=== PATIENT | female | born 1940 | race Caucasian/White ===

== ENCOUNTER 2016-07-30 15:43 | Outpatient (CLI) | payer MEDICARE, MEDICAID | END 2016-07-30 15:44 | disposition home or self-care (01) | DX: M43.8X4 Other specified deforming dorsopathies, thoracic region (principal); M51.34 Other intervertebral disc degeneration, thoracic region; M43.8X6 Other specified deforming dorsopathies, lumbar region; M41.9 Scoliosis, unspecified ==

== ENCOUNTER 2016-08-03 | Outpatient (CLI) | payer MEDICARE, MEDICAID | END 2016-08-03 07:54 | disposition critical access hospital (66) | DX: M54.9 Dorsalgia, unspecified (principal) | CPT/HCPCS: A0425; A0429 ==

== ENCOUNTER 2016-08-03 08:11 | Emergency (ER) | payer MEDICARE, MEDICAID ==
[2016-08-03] MEDS ORDERED: HYDROcod/ACETAM 5/325 MG TABLET PO STA (08:22)
[2016-08-03] MEDS ORDERED: LIDOCAINE PATCH 5% TOP STA (08:22)
[2016-08-03] MEDS ORDERED: HYDROcod/ACETAM 5/325 MG TABLET ONE (08:23)
[2016-08-03] MEDS ORDERED: LIDOCAINE PATCH 5% TOP ONE (08:24)
== END 2016-08-03 10:58 | disposition home or self-care (01) ==
DX: S20.211A Contusion of right front wall of thorax, initial encounter (principal); M54.9 Dorsalgia, unspecified; W01.0XXA Fall on same level from slipping, tripping and stumbling without subsequent striking against object, initial encounter; Y92.009 Unspecified place in unspecified non-institutional (private) residence as the place of occurrence of the external cause; I10 Essential (primary) hypertension; F17.200 Nicotine dependence, unspecified, uncomplicated
CPT/HCPCS: 99283; A9270

== ENCOUNTER 2016-08-04 | Outpatient (CLI) | payer MEDICARE, MEDICAID | END 2016-08-04 16:55 | disposition critical access hospital (66) | CPT/HCPCS: A0425; A0429 ==

== ENCOUNTER 2016-08-04 | Outpatient (CLI) | payer MEDICARE, MEDICAID | END 2016-08-04 11:35 | disposition EMS.NT ==

== ENCOUNTER 2016-08-04 17:11 | Inpatient (IN) | payer MEDICARE, MEDICAID ==
[2016-08-04] MEDS ORDERED: ASPIRIN CHEW 81 MG TABLET PO STA (17:20)
[2016-08-04] MEDS ORDERED: ASPIRIN CHEW 81 MG TABLET ONE (17:25)
[2016-08-04] MEDS ORDERED: POTASSIUM BICARB 25 MEQ TABLET PO STA (18:15)
[2016-08-04] MEDS ORDERED: diltiaZEM INJ 5 MG/ML VIAL IVP STA (18:16)
[2016-08-04] MEDS ORDERED: POTASSIUM BICARB 25 MEQ TABLET PO ONE (18:22)
[2016-08-04] MEDS ORDERED: diltiaZEM INJ 5 MG/ML VIAL ONE (18:22)
[2016-08-04] MEDS ORDERED: MAGNESIUM SULFATE 2 GRAM 50 ML IV ONE ×2 (18:29→18:34)
[2016-08-04] MEDS ORDERED: WARFARIN 5 MG TABLET PO SCH (19:27)
[2016-08-04] MEDS ORDERED: ONDANSETRON ODT 4 MG TABLET TL PRN (19:27)
[2016-08-04] MEDS ORDERED: ONDANSETRON 4 MG/2 ML VIAL IVP PRN (19:27)
[2016-08-04] MEDS ORDERED: ACETAMINOPHEN 325 MG TABLET PO PRN (19:27)
[2016-08-04] MEDS ORDERED: SODIUM CHLORIDE FLUSH 0.9% 10 ML SYRINGE IVP PRN (19:27)
[2016-08-04] MEDS: SODIUM CHLORIDE FLUSH 0.9% 10 ML SYRINGE IVP SCH (22:11)
[2016-08-05] MEDS: IBUPROFEN 400 MG TABLET PO PRN ×4 (00:06→17:14)
[2016-08-05] MEDS ORDERED: LEVALBUTEROL 1.25 MG INH PRN (01:13)
[2016-08-05] MEDS: NITROFURANTOIN MACRO 100 MG CAPSULE PO SCH ×3 (02:12→22:13)
[2016-08-05] MEDS: METOPROLOL TARTRATE 25 MG TABLET PO SCH ×3 (02:12→22:13)
[2016-08-05] MEDS: FUROSEMIDE 20 MG/2 ML VIAL IVP SCH ×2 (06:33→13:59)
[2016-08-05] MEDS: SODIUM CHLORIDE FLUSH 0.9% 10 ML SYRINGE IVP SCH ×3 (06:33→22:31)
[2016-08-05] MEDS: POLYETHYLENE GLYCOL 3350 17 GM PACKET PO SCH (09:48)
[2016-08-05] MEDS: POTASSIUM CHLORIDE 20 MEQ TABLET PO SCH (09:50)
[2016-08-05] MEDS ORDERED: MIN OIL/DIMETHICON/COCONUT OIL 92 GM TUBE TOP ONE (11:39)
[2016-08-05] MEDS ORDERED: WARFARIN 5 MG TABLET PO SCH (15:00)
[2016-08-05] MEDS: DOCUSATE SODIUM 250 MG CAPSULE PO SCH (17:14)
[2016-08-05] MEDS: SENNA 8.6 MG TABLET PO SCH (17:14)
[2016-08-06] MEDS: IBUPROFEN 400 MG TABLET PO PRN ×4 (00:37→20:32)
[2016-08-06] MEDS: FUROSEMIDE 20 MG/2 ML VIAL IVP SCH ×2 (05:42→13:20)
[2016-08-06] MEDS: SODIUM CHLORIDE FLUSH 0.9% 10 ML SYRINGE IVP SCH ×3 (05:42→20:52)
[2016-08-06] MEDS: NITROFURANTOIN MACRO 100 MG CAPSULE PO SCH ×2 (08:29→20:32)
[2016-08-06] MEDS: SENNA 8.6 MG TABLET PO SCH (08:29)
[2016-08-06] MEDS: DOCUSATE SODIUM 250 MG CAPSULE PO SCH (08:29)
[2016-08-06] MEDS: METOPROLOL TARTRATE 25 MG TABLET PO SCH ×2 (08:29→20:33)
[2016-08-06] MEDS: POTASSIUM CHLORIDE 20 MEQ TABLET PO SCH (08:29)
[2016-08-06] MEDS: POLYETHYLENE GLYCOL 3350 17 GM PACKET PO SCH (08:30)
[2016-08-06] MEDS: WARFARIN 5 MG TABLET PO SCH (08:31)
[2016-08-06] MEDS: NYSTATIN POWDER 15 GM TOP SCH ×2 (11:59→20:52)
[2016-08-06] MEDS: FAMOTIDINE 20 MG TABLET PO SCH ×2 (14:51→20:32)
[2016-08-06] MEDS: MAGNESIUM HYDROXIDE 2,400 MG/30 ML UDC PO ONE ×2 (17:02→18:29)
[2016-08-06] MEDS ORDERED: MAGNESIUM CITRATE 296 ML BOTTLE PO PRN (18:25)
[2016-08-06] MEDS ORDERED: BISACODYL 10 MG SUPP PR PRN (18:25)
[2016-08-06] MEDS ORDERED: METOPROLOL TARTRATE 25 MG TABLET PO SCH (21:07)
[2016-08-07] MEDS ORDERED: POTASSIUM CHLORIDE 20 MEQ TABLET PO ONE (05:45)
[2016-08-07] MEDS: NEUTRA-PHOS 250 MG TABLET PO SCH ×2 (05:56→08:56)
[2016-08-07] MEDS: FUROSEMIDE 20 MG/2 ML VIAL IVP SCH ×2 (06:01→13:48)
[2016-08-07] MEDS: SODIUM CHLORIDE FLUSH 0.9% 10 ML SYRINGE IVP SCH ×3 (06:05→21:17)
[2016-08-07] MEDS ORDERED: POTASSIUM CHLORIDE 20 MEQ TABLET PO SCH (06:10)
[2016-08-07] MEDS: POLYETHYLENE GLYCOL 3350 17 GM PACKET PO SCH (08:54)
[2016-08-07] MEDS: DOCUSATE SODIUM 250 MG CAPSULE PO SCH (08:55)
[2016-08-07] MEDS: WARFARIN 5 MG TABLET PO SCH (08:55)
[2016-08-07] MEDS: SENNA 8.6 MG TABLET PO SCH (08:56)
[2016-08-07] MEDS: POTASSIUM CHLORIDE 20 MEQ TABLET PO SCH (08:56)
[2016-08-07] MEDS: FAMOTIDINE 20 MG TABLET PO SCH ×2 (08:59→21:17)
[2016-08-07] MEDS: cefTRIAXone 1 GM in SODIUM CHLORIDE 0.9% MINIBAG 100 ML IV SCH (09:36)
[2016-08-07] MEDS: IBUPROFEN 400 MG TABLET PO PRN ×3 (09:37→21:16)
[2016-08-07] MEDS: NYSTATIN POWDER 15 GM TOP SCH ×2 (10:40→21:17)
[2016-08-08] MEDS: FUROSEMIDE 20 MG/2 ML VIAL IVP SCH (06:26)
[2016-08-08] MEDS: SODIUM CHLORIDE FLUSH 0.9% 10 ML SYRINGE IVP SCH (06:26)
[2016-08-08] MEDS: HYDROcod/ACETAM 5/325 MG TABLET PO PRN ×2 (06:27→13:03)
[2016-08-08] MEDS: WARFARIN 5 MG TABLET PO SCH (07:48)
[2016-08-08] MEDS: cefTRIAXone 1 GM in SODIUM CHLORIDE 0.9% MINIBAG 100 ML IV SCH (10:33)
[2016-08-08] MEDS: FAMOTIDINE 20 MG TABLET PO SCH (10:49)
[2016-08-08] MEDS: DOCUSATE SODIUM 250 MG CAPSULE PO SCH (10:49)
[2016-08-08] MEDS: SENNA 8.6 MG TABLET PO SCH (10:50)
[2016-08-08] MEDS: POTASSIUM CHLORIDE 20 MEQ TABLET PO SCH (10:50)
[2016-08-08] MEDS: NYSTATIN POWDER 15 GM TOP SCH (10:55)
[2016-08-08] MEDS: POLYETHYLENE GLYCOL 3350 17 GM PACKET PO SCH (10:58)
== END 2016-08-08 13:45 | DRG 308 ==
DX: I48.91 Unspecified atrial fibrillation (principal); I48.92 Unspecified atrial flutter; I50.23 Acute on chronic systolic (congestive) heart failure; I10 Essential (primary) hypertension; N30.00 Acute cystitis without hematuria; M81.0 Age-related osteoporosis without current pathological fracture; J44.9 Chronic obstructive pulmonary disease, unspecified; F17.200 Nicotine dependence, unspecified, uncomplicated; E87.6 Hypokalemia; R53.1 Weakness; B96.20 Unspecified Escherichia coli [E. coli] as the cause of diseases classified elsewhere; S22.49XD Multiple fractures of ribs, unspecified side, subsequent encounter for fracture with routine healing; W19.XXXD Unspecified fall, subsequent encounter; Z98.42 Cataract extraction status, left eye; Z98.41 Cataract extraction status, right eye; I87.8 Other specified disorders of veins; Z66 Do not resuscitate

== ENCOUNTER 2016-09-29 14:15 | Outpatient (CLI) | payer MEDICAID, MEDICARE, OTHER | END 2016-09-29 14:16 | disposition home or self-care (01) | DX: N39.0 Urinary tract infection, site not specified (principal) ==

== ENCOUNTER 2016-09-30 08:00 | Outpatient (CLI) | payer MEDICAID, MEDICARE, OTHER | END 2016-09-30 08:01 | disposition home or self-care (01) | DX: N39.0 Urinary tract infection, site not specified (principal) ==

== ENCOUNTER 2016-11-12 08:00 | Outpatient (CLI) | payer MEDICARE, MEDICAID ==
[2016-11-13 07:47] LABS: BILIRUBIN,URINE NEGATIVE (NEGATIVE)
[2016-11-13 07:59] LABS: UA w/ MICROSCOPIC CHARGE YES
[2016-11-13 08:01] LABS: UR CULTURE IF IND INDICATED
== END 2016-11-12 23:59 | disposition home or self-care (01) ==
LOC: LAB.R 08:00
DX: R35.0 Frequency of micturition (principal)
CPT/HCPCS: 81001; 81003; 87077; 87086